=== PATIENT | female | born 1970 | race Caucasian/White ===

== ENCOUNTER 2017-11-07 06:01 | Emergency (ER) | payer BC, OTHER ==
[~2017-11-07] VITALS: Ht 167.6 cm; Wt 75.5 kg
[~2017-11-07 06:01] MED LIST: BCPILLS PO
[2017-11-07 06:07] VITALS: TEMP 36.7; Ht 167.6 cm; Wt 75.5 kg
[2017-11-07] MEDS ORDERED: DIAZEPAM INJ 5 MG/ML 2 ML CARP IV STA (06:47)
[2017-11-07] MEDS ORDERED: SODIUM CHLORIDE 0.9% 1000ML 1,000 ML IV STA (06:47)
[2017-11-07] MEDS ORDERED: ONDANSETRON INJ 2 MG/ML 2 ML VIAL IV STA (06:47)
[2017-11-07 07:46] LABS: BASO % 0.3 %; BASO ABS # 0.03 K/uL (0-0.2); EOS % 0.4 %; EOS ABS # 0.04 K/uL (0-0.5); HEMATOCRIT 38.3 % (37-47); HEMOGLOBIN 13.4 g/dL (12.0-16.0); IG# 0.02 K/uL (0.00-0.02); LYMPH % 14.6 %; LYMPH ABS # 1.39 K/uL (1.2-3.4); MEAN CELL VOLUME 93.2 fL (80-100); MEAN CORPUSCULAR HEMOGLOBIN 32.6 pg (25-34); MEAN PLATELET VOLUME 10.5 fL (7.4-10.4); MONO % 5.8 %; MONO ABS # 0.55 K/uL (0.11-0.59); NEUT % 78.7 %; NEUT ABS # 7.52 K/uL (1.4-6.5); PLATELET COUNT 228 K/uL (130-400); RED CELL DISTRIBUTION WIDTH CV 12.5 % (11.5-14.5); RED CELL DISTRIBUTION WIDTH SD 42.3 fL (36.4-46.3); WHITE BLOOD COUNT 9.55 K/uL (4.8-10.8)
[2017-11-07] MEDS ORDERED: DIAZEPAM 5 MG/ML INJ 10ML VIAL ONE (07:51)
[2017-11-07] MEDS ORDERED: SERT25TA PO (07:56)
[2017-11-07 08:03] LABS: ALBUMIN 3.8 gm/dl (3.4-5.0); ALT/SGPT 23 U/L (12-78); AST/SGOT 17 U/L (15-37); BLOOD UREA NITROGEN 9 mg/dl (7-18); CALCIUM 8.7 mg/dl (8.5-10.1); CARBON DIOXIDE 24 mmol/L (21-32); CREATININE 0.64 mg/dl (0.60-1.20); GLUCOSE 100 mg/dl (70-99); POTASSIUM 3.7 mmol/L (3.5-5.1); SODIUM 139 mmol/L (136-145)
[2017-11-07 08:08] LABS: ALKALINE PHOSPHATASE 47 U/L (45-117); TOTAL PROTEIN 7.5 gm/dl (6.4-8.2)
--- NOTE | 2017-11-07 08:43 | DIAGNOSTIC IMAGING REPORT ---
CT SCAN OF THE BRAIN WITHOUT IV CONTRAST CLINICAL HISTORY: Vomiting and dizziness. COMPARISON STUDY: No priors. TECHNIQUE: Unenhanced axial CT scan of the brain is performed from the vertex to the skull base. A dose lowering technique was utilized adhering to the principles of ALARA. CT DOSE: 537.48 mGy.cm FINDINGS: Brain parenchyma: The brain parenchyma is normal in appearance. There is no hemorrhage, mass effect, or evidence of acute territorial ischemia by CT criteria. March-white matter is preserved. No extra-axial fluid collection is seen. Ventricles, sulci, cisterns: Normal in configuration. Intracranial vasculature: The visualized intracranial vasculature at the skull base is normal in appearance. Calvarium: Unremarkable. Sinuses and mastoids: The visualized paranasal sinuses are clear. The mastoid air cells are well pneumatized. Orbits: The bony orbits are grossly intact. IMPRESSION: No acute intracranial abnormality. Electronically signed by: Vernon Cooper M.D. 11/07/2017 8:42 AM Dictated Date/Time: 11/07/2017 8:40 AM
[2017-11-07 11:28] VITALS: O2SAT 97
[2017-11-07 11:31] VITALS: BP 107/73; PULSE 76
[2017-11-07] MEDS ORDERED: MECL1TAB42 PO (11:51)
[2017-11-07] MEDS ORDERED: MECLIZINE HCL 25MG HOME PACK PO ONE (12:00)
[2017-11-07] MEDS ORDERED: ONDANSETRON HOME PACK 4MG OD TAB PO ONE (12:00)
--- NOTE | 2017-11-07 14:47 | EMERGENCY ROOM VISIT NOTE ---
History Report prepared by Nancy: Gunner Ochoa Under the Supervision of: Dr. Dominic Gutierrez M.D. First contact with patient: 06:39 Chief Complaint: DIZZY Stated Complaint: DIZZINESS Nursing Triage Summary: pt arrives BLS from home. per pt she woke with lightheadedness. pt got up and began to feel nauseated and the room was spinning. pt reports +vomiting. continues to be dizzy and feels as if the room is spinning. pt denies hx of vertigo. pt states she felt "perfectly normal" prior to going to bed last night. pt denies pain History of Present Illness The patient is a 47 year old female who presents to the Emergency Room with complaints of intermittent dizziness and nausea that began yesterday while the patient was on a field trip. She states that she had a "moment" during the trip where she felt like she was going to faint, but states that she was not dizzy at the time. She states that the symptoms resided after she ate breakfast. Patient states that she then woke up this morning with the room spinning. She describes the room spinning as her "vision going back and forth". She adds that she drank 4 glasses of wine last night but that it is does feel like she is hung over. She states that she has no history of these symptoms. Patient states that the symptoms were relieved when she closed her eyes and stayed still. She states that the symptoms are exacerbated with movement. She adds that it took a "lot of effort" to get dressed and go downstairs let to let emergency services in. She states that she vomited after getting downstairs. Patient denies any loss of vision. She adds that she has had a hay fever recently. Patient states that her family doctor is Dr. Milligan. She adds that she takes 25mg of Zoloft qd for her anxiety and depression. Pertinent past medical history includes a " burst eardrum". Pt denies LOC, headache, chills, diaphoresis, neck pain, chest pain, breathing difficulties, abdominal pain, back pain, melena, hematochezia, urinary symptoms, numbness, weakness, lymphadenopathy, rash, or other complaints. Source of History: patient Onset: Yesterday Position: head Timing: intermittent Modifying Factors (Worsening): movement Modifying Factors (Relieving): other (Staying still with eyes closed) Associated Symptoms: + vomiting Review of Systems See HPI for pertinent positives and negatives. A total of ten systems were reviewed and were otherwise negative. Past Medical & Surgical Medical Problems: (1) Anxiety (2) Depression Family History Cancer Diabetes mellitus Gallbladder disease Heart disease Hypertension Social History Smoking Status: Current Every Day Smoker Current/Historical Medications Scheduled Control Pills ( Control Pills), 1 TAB PO DAILY Sertraline (Zoloft), 25 MG PO DAILY Scheduled PRN Meclizine Hcl (Meclizine Hcl), 25 MG PO TID PRN for Dizziness Allergies Coded Allergies: Chloramphenicol (Verified Allergy, Unknown, 08/16/09) Penicillins (Verified Allergy, Unknown, 08/16/09) Sulfa Drugs (Verified Allergy, Unknown, 08/16/09) Physical Exam Vital Signs Date Time Temp Pulse Resp B/P (MAP) Pulse Ox O2 Delivery O2 Flow Rate FiO2 11/07/17 11:31 76 20 107/73 11/07/17 11:28 72 19 97 11/07/17 11:01 112/75 11/07/17 10:31 112/75 11/07/17 10:28 79 97 11/07/17 10:08 121/62 11/07/17 10:05 128/79 11/07/17 10:04 82 114/67 94 128/79 105 121/62 11/07/17 10:01 114/67 11/07/17 09:51 126/68 11/07/17 09:51 85 20 126/68 97 11/07/17 09:28 83 15 97 11/07/17 09:01 106/65 11/07/17 08:42 79 20 118/84 98 Room Air 11/07/17 08:41 118/84 11/07/17 08:31 109/66 11/07/17 08:28 72 18 98 11/07/17 08:02 120/76 11/07/17 07:31 96/49 11/07/17 07:28 85 13 99 11/07/17 07:01 133/81 11/07/17 06:31 126/82 11/07/17 06:28 78 13 99 Room Air 11/07/17 06:28 76 13 100 11/07/17 06:23 132/81 11/07/17 06:21 79 11/07/17 06:07 36.7 84 21 139/81 100 Room Air 11/07/17 06:05 139/81 Physical Exam GENERAL: Awake, alert, uncomfortable appearing, no distress HENT: Normocephalic, atraumatic. TM's normal. Oropharynx unremarkable. EYES: PERRL. EOMI. Normal conjunctiva. Sclera non-icteric. NECK: Supple. No nuchal rigidity. FROM. No bruit. RESPIRATORY: Breath sounds equal. No wheezes. No rhonchi. Normal respiratory effort. CARDIAC: Normal rate. Regular rhythm. No murmurs. No rubs. No JVD. GI: Soft, non distended. No tenderness to palpation. No rebound or guarding. No masses. RECTAL: Deferred. MUSCULOSKELETAL: Unremarkable. No edema. No discoloration. Gross motor strength symmetric. NEURO: Cranial nerves 2-12 grossly intact. Normal sensorium. No sensory or motor deficits noted. Speech normal. No pronator drift. Normal rapid alternating movements. Normal heel to benedict. Negative HINTS exam. Lateral nystagmus noted. No pathologic nystagmus. SKIN: No rash or jaundice noted. LYMPH: No adenopathy. Medical Decision & Procedures ER Provider Diagnostic Interpretation: Radiology results as stated below per my review and radiologist interpretation: CT SCAN OF THE BRAIN WITHOUT IV CONTRAST CLINICAL HISTORY: Vomiting and dizziness. COMPARISON STUDY: No priors. TECHNIQUE: Unenhanced axial CT scan of the brain is performed from the vertex to the skull base. A dose lowering technique was utilized adhering to the principles of ALARA. CT DOSE: 537.48 mGy.cm FINDINGS: Brain parenchyma: The brain parenchyma is normal in appearance. There is no hemorrhage, mass effect, or evidence of acute territorial ischemia by CT criteria. March-white matter is preserved. No extra-axial fluid collection is seen. Ventricles, sulci, cisterns: Normal in configuration. Intracranial vasculature: The visualized intracranial vasculature at the skull base is normal in appearance. Calvarium: Unremarkable. Sinuses and mastoids: The visualized paranasal sinuses are clear. The mastoid air cells are well pneumatized. Orbits: The bony orbits are grossly intact. IMPRESSION: No acute intracranial abnormality. Electronically signed by: Vernon Coopre M.D. 11/07/2017 8:42 AM Laboratory Results 11/07/17 07:37 Red Blood Count 4.11, Mean Corpuscular Volume 93.2, Mean Corpuscular Hemoglobin 32.6, Mean Corpuscular Hemoglobin Concent 35.0, Mean Platelet Volume 10.5, Neutrophils (%) (Auto) 78.7, Lymphocytes (%) (Auto) 14.6, Monocytes (%) (Auto) 5.8, Eosinophils (%) (Auto) 0.4, Basophils (%) (Auto) 0.3, Neutrophils # (Auto) 7.52, Lymphocytes # (Auto) 1.39, Monocytes # (Auto) 0.55, Eosinophils # (Auto) 0.04, Basophils # (Auto) 0.03 11/07/17 07:37 Test 11/07/17 07:37 White Blood Count 9.55 K/uL (4.8-10.8) Red Blood Count 4.11 M/uL (4.2-5.4) Hemoglobin 13.4 g/dL (12.0-16.0) Hematocrit 38.3 % (37-47) Mean Corpuscular Volume 93.2 fL (80-100) Mean Corpuscular Hemoglobin 32.6 pg (25-34) Mean Corpuscular Hemoglobin Concent 35.0 g/dl (32-36) Platelet Count 228 K/uL (130-400) Mean Platelet Volume 10.5 fL (7.4-10.4) Neutrophils (%) (Auto) 78.7 % Lymphocytes (%) (Auto) 14.6 % Monocytes (%) (Auto) 5.8 % Eosinophils (%) (Auto) 0.4 % Basophils (%) (Auto) 0.3 % Neutrophils # (Auto) 7.52 K/uL (1.4-6.5) Lymphocytes # (Auto) 1.39 K/uL (1.2-3.4) Monocytes # (Auto) 0.55 K/uL (0.11-0.59) Eosinophils # (Auto) 0.04 K/uL (0-0.5) Basophils # (Auto) 0.03 K/uL (0-0.2) RDW Standard Deviation 42.3 fL (36.4-46.3) RDW Coefficient of Variation 12.5 % (11.5-14.5) Immature Granulocyte % (Auto) 0.2 % Immature Granulocyte # (Auto) 0.02 K/uL (0.00-0.02) Anion Gap 8.0 mmol/L (3-11) Est Creatinine Clear Calc Drug Dose 110.4 ml/min Estimated GFR () 121.4 Estimated GFR (Non- 104.8 BUN/Creatinine Ratio 13.9 (10-20) Calcium Level 8.7 mg/dl (8.5-10.1) Total Bilirubin 0.4 mg/dl (0.2-1) Aspartate Amino Transf (AST/SGOT) 17 U/L (15-37) Alanine Aminotransferase (ALT/SGPT) 23 U/L (12-78) Alkaline Phosphatase 47 U/L (45-117) Troponin I < 0.015 ng/ml (0-0.045) Total Protein 7.5 gm/dl (6.4-8.2) Albumin 3.8 gm/dl (3.4-5.0) Globulin 3.7 gm/dl (2.5-4.0) Albumin/Globulin Ratio 1.0 (0.9-2) Human Chorionic Gonadotropin, Qual NEG (NEG) Laboratory results reviewed by me Medications Administered Medications (Trade) Dose Ordered Sig/Mariana Route Start Time Stop Time Status Last Admin Dose Admin Sodium Chloride 1,000 ml @ 999 mls/hr Q1H1M STAT IV 11/07/17 06:47 11/07/17 07:47 DC 11/07/17 08:00 999 MLS/HR Ondansetron HCl (Zofran Inj) 4 mg NOW STAT IV 11/07/17 06:47 11/07/17 06:49 DC 11/07/17 07:58 4 MG Diazepam (Valium Inj) 5 mg NOW STAT IV 11/07/17 06:47 11/07/17 06:49 DC 11/07/17 08:00 5 MG Ondansetron HCl (ZOFRAN ODT 4MG Home Pack) 1 homepack UD ONCE PO 11/07/17 12:00 11/07/17 12:01 DC 11/07/17 12:16 1 HOMEPACK Meclizine HCl (Antivert 25MG Home Pack) 1 homepack UD ONCE PO 11/07/17 12:00 11/07/17 12:01 DC 11/07/17 12:16 1 HOMEPACK ECG Per My Interpretation Indication: other (Dizziness) Rate (beats per minute): 80 Rhythm: normal sinus Findings: no acute ischemic change, prolonged QT (426ms), no ectopy, other ( QRS = 86ms) ED Course 0640: The patient was evaluated in room A9B. A complete history and physical exam was performed. 0647: Valium Inj 5mg IV, Zofran Inj 4mg IV, and Sodium Chloride 1000 ml @ 999 mls/hr IV. 1200: Meclizine HCl 1 homepack PO and Ondansetron HCl 1 homepack PO. 1206: I reevaluated the patient. She is resting comfortably. Discussed results and discharge instructions. She verbalized understanding and agreement. The patient is ready for discharge. Medical Decision Prior records/ancillary studies reviewed. Triage Nursing notes reviewed and agree them. The patient's history was concerning for dizziness. Differential diagnosis: Etiologies such as benign positional vertigo, tumor, infection, hypoglycemia, electrolyte abnormalities, cardiac sources, intracerebral event, toxicologic, neurologic, as well as others were entertained. Physical examination: As above. No pathologic nystagmus. ER treatment provided: IV hydration over one hour IV Zofran IV Valium On reassessment the patient felt well. Diagnostics interpretation by me: ECG: Normal sinus rhythm without ischemic change or evidence of dysrhythmia. The labs revealed a normal CBC and chemistry panel. CT imaging did not reveal any evidence of abnormalities. It appears the patient had an episode of benign -positional vertigo. The patient is doing much better. She was ambulated without difficulty. By her history and physical examination this seems to be very consistent with positional vertigo. I discussed conservative management and the patient felt comfortable. By the evaluation outlined above emergent etiologies such as infection, hypoglycemia, electrolyte abnormalities, cardiac sources, intracerebral event, toxicologic, neurologic,as well as others were deemed relatively unlikely. The patient was informed about the findings as listed above. All questions were answered and she was pleased with the treatment. Return instructions were outlined and the patient was discharged in stable condition. Outpatient prescription management: Meclizine Referral: The patient was referred back to her primary care physician for follow-up in 2 to 3 days for a recheck of the current condition. Medication Reconcilliation Current Medication List: was personally reviewed by me Blood Pressure Screening Patient's blood pressure: Normal blood pressure Blood pressure disposition: Did not require urgent referral Impression Primary Impression: Dizziness Additional Impressions: Vomiting Positional vertigo Scribe Attestation The scribe's documentation has been prepared under my direction and personally reviewed by me in its entirety. I confirm that the note above accurately reflects all work, treatment, procedures, and medical decision making performed by me. Departure Information Dispostion Home / Self-Care Prescriptions Meclizine Hcl (MECLIZINE HCL) 25 Mg Tab 25 MG PO TID Y for Dizziness, #21 TAB Prov: Dominic Gutierrez MD 11/07/17 Referrals Dominic Palma III, M.D. (PCP) Forms HOME CARE DOCUMENTATION FORM, IMPORTANT VISIT INFORMATION Patient Instructions My [facility], Vertigo Paroxysmal Positional Additional Instructions DIZZINESS INSTRUCTIONS: DO NOT drive, drink alcohol, operate machinery, or perform dangerous activities today. You were given medications in the ER that can affect your ability to safely function or operate a vehicle. You should not drive or perform any dangerous activities until your symptoms resolve. Meclizine 25mg: Take 1 pill every 8 hours as needed for dizziness or vertigo. Avoid alcohol, operating machinery or dangerous equipment, working on ladders or roofs, DRIVING, or situations where being under the influence may be dangerous Zofran(odansetron) tablets 4mg: Take one and allow it to dissolve in your mouth every four to six hours as needed for nausea or vomiting. Rest and drink plenty of fluids as tolerated. Continue current medications. If you have nausea or vomiting: Once your stomach is settled start with a clear liquid diet (jello, soup broth, etc.) and then advance as tolerated. You should avoid full, heavy meals for about 24 hrs from the time your symptoms resolved. Return to the ER immediately for worsening or persistent dizziness, vomiting, headache, fevers, chest pains, difficulty breathing, black or bloody stools, slurred speech, numbness, weakness, visual changes, worsening of your condition , or as needed. Follow up with your primary physician in 2-3 days for a recheck of your current condition. Problem Qualifiers
== END 2017-11-07 12:20 | disposition home or self-care (01) ==
LOC: EDBD 06:01 → C.EDA 06:02
DX: H81.10 Benign paroxysmal vertigo, unspecified ear (principal); R11.10 Vomiting, unspecified; F41.9 Anxiety disorder, unspecified; F32.9 Major depressive disorder, single episode, unspecified; F17.210 Nicotine dependence, cigarettes, uncomplicated; Z79.3 Long term (current) use of hormonal contraceptives; Z79.899 Other long term (current) drug therapy; Z88.0 Allergy status to penicillin; Z88.2 Allergy status to sulfonamides; Z88.8 Allergy status to other drugs, medicaments and biological substances